=== PATIENT | male | born 1955 | race Caucasian/White ===

== ENCOUNTER 2016-09-01 10:02 | Emergency (ER) | payer OTHER ==
[2016-09-01 09:21] LABS: BASOPHILS 0.6 %; BASOPHILS ABSOLUTE 0.05 10/3/uL (0.0-0.16); EOSINOPHILS 1.5 %; EOSINOPHILS ABSOLUTE 0.13 10/3/uL (0.0-0.53); ER CBC TAT 0 Hrs 03 Mins; HEMATOCRIT 41.1 % (40.0-51.0); HEMOGLOBIN 14.1 g/dL (13.6-17.8); IMMATURE GRANULOCYTES 0.2 %; IMMATURE GRANULOCYTES ABSOLUTE 0.02 10/3/uL (0.0-0.11); LYMPHOCYTES 18.2 %; LYMPHOCYTES ABSOLUTE 1.63 10/3/uL (0.67-4.30); MANUAL DIFF NO %; MEAN CORPUS HGB CONC 34.3 g/dL (32.0-36.0); MEAN CORPUSCULAR HEMOGLOB 31.2 pg (26.0-34.0); MEAN CORPUSCULAR VOLUME 90.9 fL (80-100); MEAN PLATELET VOLUME 8.9 fL (9.2-13.0); MONOCYTES 6.5 %; MONOCYTES ABSOLUTE 0.58 10/3/uL (0.21-1.20); NEUTROPHILS ABSOLUTE 6.55 10/3/uL (2.02-8.40); PLATELET COUNT 359 10/3/uL (150-400); RBC DISTRIBUTION WIDTH 14.8 % (12.0-16.0); RED CELL COUNT 4.52 10/6/uL (4.7-6.1)
[2016-09-01 09:39] LABS: PARTIAL THROMBO TIME 32.6 SEC (22.5-37.2); PROTIME (NOT ORD) 13.1 SEC (12.0-14.5)
[2016-09-01 09:44] LABS: A/G RATIO 0.9 (0.7-1.9); ALBUMIN 3.9 G/DL (3.5-5.0); ALKALINE PHOSPHATASE 128 U/L (45-117); BUN (BLOOD UREA NITROGEN) 16 MG/DL (6-23); CHLORIDE, SERUM 107 MMOL/L (96-112); CO2 (CARBON DIOXIDE) 25 MMOL/L (24-34); CREATININE 0.86 MG/DL (0.70-1.30); GFR AFRICAN AMERICAN 108 ML/MIN (>=60); GFR NON AFRICAN AMERICAN 94 ML/MIN (>=60); GLOBULIN 4.3 G/DL (2.5-4.1); GLUCOSE, SERUM 100 MG/DL (60-99); POTASSIUM, SERUM 3.9 MMOL/L (3.5-5.3); SGOT(AST) 11 U/L (5-40); SGPT(ALT) 13 U/L (5-65); SODIUM, SERUM 139 MMOL/L (135-148); TOTAL BILIRUBIN 0.3 MG/DL (0-1.2); TOTAL PROTEIN 8.2 G/DL (6.0-8.5); TROPONIN I <0.02 NG/ML (<0.05)
[~2016-09-01 10:02] MED LIST: ADVIL PO; AVODART PO; CELEXA20 PO; COMP10B PO; LORT7 PO; MIRALAXPKT PO; MSCONT15 PO; MSCONTIN PO; MULTIVITAMI1 PO; NEUR300 PO; NORCO1 TA2 PO; NORV5 PO; PCET PO; PROTONIX PO; STOOL SOFTENER OTC PO; ZOFRAN8 PO
[2017-01-18] MEDS ORDERED: DEX4 PO (13:45)
[2017-01-18] MEDS ORDERED: ACETYL L-CARNITINE PO (13:47)
[2017-01-18] MEDS ORDERED: TYLENOL PM PO (13:47)
[2017-01-18] MEDS ORDERED: CENTRUM PO (13:47)
== END 2016-09-01 12:13 | disposition home or self-care (01) ==
LOC: ER 10:02
PROVIDERS: Emergency Medicine
DX: C71.9 Malignant neoplasm of brain, unspecified (principal); C34.90 Malignant neoplasm of unspecified part of unspecified bronchus or lung; F17.200 Nicotine dependence, unspecified, uncomplicated; J44.9 Chronic obstructive pulmonary disease, unspecified; I10 Essential (primary) hypertension; Z91.013 Allergy to seafood; Z79.899 Other long term (current) drug therapy; D49.89 Neoplasm of unspecified behavior of other specified sites
CPT/HCPCS: 70450; 70553; 71010; 80053; 84484; 85025; 85610; 85730; 93005; 96374; 99285; A9577

== ENCOUNTER 2016-11-16 20:30 | Inpatient (IN) | payer OTHER ==
--- NOTE | ~2016-11-16 | IDS ---
Interim Discharge Summary [facility] [address] [place]. [address] NAME: CELSO BURKS : 55 STATUS : ADM IN PAT#: [id number] AGE: 61 ADM/REG DATE : 11/16/16 MR#: [id number] REPORT SERV DATE: 11/23/16 DICTATED BY: DATE: REPORT STATUS : Draft TRANSCRIBED BY: MODL DATE: 11/23/16 ADMISSION DATE: 11/16/2016 DISCHARGE DATE: INTERIM DISCHARGE DIAGNOSES: 1. 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 2. Vasogenic edema. 3. Severe headaches. 4. Recurrent falls. 5. Leukocytosis. 6. Hyperglycemia. CONSULTING PHYSICIANS: Include: 1. Thomas Romero MD, with [facility]. 2. Alfonzo Herr MD, with Radiation Oncology. IMAGING: Includes MRI of the brain with and without contrast. This demonstrated a solitary metastatic lesion measured in 09/2016, 3.1 x 2.0 cm; and on 11/17/2016, it measured 2.7 x 1.9 cm. There was also noted peritumoral edema, which has increased in size since 09/2016 from 7.1 x 4.7 cm to 10.7 x 5.7 cm. The increasing mass effect is associated with a 6 to 7 mm shift, right to left, of the ventricular system. For full H and P, please refer to Dr. Mike Calderon's dictation on 11/16/2016. Please also see Dr. Alfonzo Herr's consultation dictation on 11/17/2016. HOSPITAL COURSE: The patient was admitted with weakness and multiple falls at home. After obtaining the MRI noted above, the patient was started on IV dexamethasone and has remained on the steroid throughout the hospital stay. According to Dr. 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 He is currently on dexamethasone 4 mg IV q.6 hours. His symptoms have drastically improved. He came in with some left-sided weakness with left-sided facial drooping as well as slurred speech. This has almost resolved. He has been working with Physical Therapy and Occupational Therapy, and he will need inpatient rehab with [facility], we are just waiting on insurance approval. CONSTANTINO/MODL Ronnie Siddiqui NP / [id number] CC: Pérez Cortes MD Interim Discharge Summary [address] [place]. [address] NAME: VITALIYCELSOOtilia ANDINO : 55 STATUS : ADM IN PAT#: [id number] AGE: 61 ADM/REG DATE : 11/16/16 MR#: [id number] REPORT SERV DATE: 11/23/16 DICTATED BY: DATE: REPORT STATUS : Draft TRANSCRIBED BY: PAWANL DATE: 11/23/16 Jovani Lyn M.D.
--- NOTE | ~2016-11-16 | HP ---
History And Physical [place] [id number] [facility] [place]. [address] NAME: CELSO BURKS : 55 STATUS : ADM IN PAT#: [id number] AGE: 61 ADM/REG DATE : 11/16/16 MR#: [id number] REPORT SERV DATE: 11/17/16 DICTATED BY: DANIEL HOGUE DATE: 11/16/16 REPORT STATUS : Draft TRANSCRIBED BY: MODL DATE: 11/16/16 DATE OF ADMISSION: 11/16/2016 POINT OF ENTRY: [facility] Emergency Department PRIMARY ONCOLOGIST: Dr. Thomas Romero. CHIEF COMPLAINT: Weakness and falls. HISTORY OF PRESENT ILLNESS: Mr. Burks is a 61-year-old gentleman with a history of metastatic lung cancer with known metastasis to the brain who presents to the emergency department today with report of a one to two week history of worsening left-sided weakness with associated falls. The patient states that he was recently weaned off steroids for known metastatic lesion to the brain with associated vasogenic edema about a week to week and a half ago. States he received a single dose of radiation therapy to the brain as well about two to three weeks ago. Since his weaning from steroids, he has noted progressive worsening weakness of the left arm, greater than left leg with associated difficulties walking with multiple mechanical falls at home and now difficulty even getting himself up off the ground. He had a mechanical fall today where he was unable to get himself up off the ground and required assistance of a very muscular neighbor prompting presentation to the emergency department. He also reports worsening headaches as well as some intermittent dysarthria but denies any dysphagia, aspiration, vision changes. Initial evaluation in the emergency department notable for CT scan of the brain that shows a right posterior frontal lobe lesion that is slightly reduced in size compared to previous imaging, however, it does show significant interval increase to vasogenic edema surrounding the mass extending into the deep white matter regions of the right frontal, parietal, as well as temporal lobe with increasing mass effect of the overlying sulci and right lateral ventricle with increasing midline shift of now [address] Romero of Oncology was consulted and he recommended starting Decadron IV therapy, did not feel the patient was a surgical candidate, and therefore is not a candidate for transfer for Neurosurgery evaluation at [place]. REVIEW OF SYSTEMS: Comprehensive review of systems otherwise negative unless listed in history of present illness. PREVIOUS MEDICAL HISTORY: 1. Non-small cell lung cancer with known metastasis to the brain. 2. Hypertension. 3. COPD. SURGICAL HISTORY: Right thoracotomy with right upper lobe lung resection as well as chest wall resection including the ribs 3, 4, and 5. History And Physical [place] [address] [place]. [address] NAME: CELSO BURKS : 55 STATUS : ADM IN PAT#: [id number] AGE: 61 ADM/REG DATE : 11/16/16 MR#: [id number] REPORT SERV DATE: 11/17/16 DICTATED BY: DANIEL HOGUE DATE: 11/16/16 REPORT STATUS : Draft TRANSCRIBED BY: SHANTI DATE: 11/16/16 ALLERGIES: NO KNOWN DRUG ALLERGIES. HOME MEDICATIONS: Pending at the time of dictation. SOCIAL HISTORY: He is a former smoker, quit about two years ago with lung cancer diagnosis. Denies alcohol or illicits. FAMILY HISTORY: Mother with history of colon cancer. Father with history of lung cancer. Siblings with history of coronary artery disease. LABS AND IMAGIN. White count 10.8, hemoglobin is 14.1, hematocrit 42.0, and platelet count 370. INR 1.0. 2. CMP is pending at the time of dictation. 3. CT scan of the brain similar to slightly decreased appearing size of a poorly circumscribed mass, right posterior frontal lobe, estimated 2.1 x 2.2 cm in diameter compared to 2.2 x 2.6 cm diameter on the MRI brain images, although there is significant interval increasing vasogenic edema surrounding this mass extending into the deep white matter regions of the right frontal parietal and temporal lobe with increasing mass effect on the overlying sulci and right lateral ventricle with increasing shift in midline structures to the left of midline, now measures 6 mm, preserved basal cisterns. No evidence of significant downward brain herniation, mild deep white matter chronic microvascular ischemic changes, left periventricular deep white matter. No other acute intracranial pathology. PHYSICAL EXAMINATION: VITAL SIGNS: Temperature is 98.1 degrees Fahrenheit, pulse is 89, respirations 18, saturating 98% on room air, and blood pressure 160/91. GENERAL: The patient is awake, alert, in no acute distress. Resting comfortably in bed. He is a well-developed, well-nourished, elderly chronically ill-appearing elderly male. HEENT: Atraumatic and normocephalic. Moist mucous membranes. Pupils are equal, round, reactive to light and accommodation. Extraocular eye movements intact. No scleral icterus. NECK: No jugular venous distention. No carotid bruits. CARDIAC: Regular rate and rhythm. No murmurs or gallops. Normal S1, S2. LUNGS: Clear to auscultation bilaterally. No wheezes, rhonchi, or crackles. Does have some decreased breath sounds in the bases and prolonged respiratory phase. ABDOMEN: Soft, nontender, nondistended. Good bowel sounds. No rebound, guarding, or rigidity. EXTREMITIES: Warm and perfused. No cyanosis, clubbing, or edema. SKIN: Warm and dry. PSYCH: Affect appropriate. NEURO: Alert and oriented x3. His speech is somewhat dysarthric, although cranial nerves 2 through 12 are grossly intact except for some right-sided facial droop. He has about 3/5 strength in the left upper extremity with even worse business records manager strength and about 4/5 strength in distal left lower extremity. Gait was not assessed. History And Physical [address] [address] NAME: CELSO BURKS : 55 STATUS : ADM IN [facility]#: [id number] AGE: 61 ADM/REG DATE : 11/16/16 MR#: [id number] REPORT SERV DATE: 11/17/16 DICTATED BY: DANIEL HOGUE DATE: 11/16/16 REPORT STATUS : Draft TRANSCRIBED BY: SHANTI DATE: 11/16/16 ASSESSMENT: Mr. Burks is a 61-year-old gentleman with history of metastatic lung cancer with known metastasis to the brain who presents with worsening headaches, left-sided weakness with resulting recurrent mechanical falls and is now found to have evidence of worsening vasogenic edema and mass effect surrounding his known brain metastasis. PROBLEM LIST: 1. Brain metastasis with worsening vasogenic edema, mass effect, and midline shift. 2. Left-sided weakness. 3. Severe headaches. 4. Recurrent mechanical falls. 5. Metastatic lung cancer to the brain. PLAN: 1. Brain metastasis with worsening vasogenic edema, mass effect, and midline shift. We will place the patient on Decadron 10 mg IV q.6 hours. We will consult the patient's oncologist and radiation oncologist to see patient in the morning. Dr. Romero did not think patient was a surgical candidate, therefore, transfer to [facility] was not attempted. Per discussion with the patient, he also wants to avoid surgery at all costs and is amenable to staying at [facility] at this time. 2. DVT prophylaxis. Lovenox subcu. CODE STATUS: The patient wished to be full code. JCB/MODL Daniel Hogue MD / [id number] CC: Sarah Vanegas M.D.
--- NOTE | ~2016-11-16 | CONSULT ---
Radiation Oncology Consult [place] [id number] [facility] [place]. 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 PREVIOUS TREATMENT: Stereotactic radiosurgery to 18 Gy to the right mid centrum semiovale. DATE OF COMPLETION: 09/25/2016. INTERVAL HISTORY: This is a delightful 61-year-old male, who presented with a large apical chest mass with invasion of the ribs. Biopsy confirmed poorly differentiated squamous cell carcinoma. He underwent preoperative chemoradiation for a non-small cell lung cancer. This was followed by surgical resection. During the interval followup, the patient developed stroke-like symptoms, and an MRI of the brain in August confirmed a 2.4 cm enhancing mass in the mid centrum ovale. The patient underwent stereotactic radiosurgery which was completed in September. Since that time, he has had persistent headaches that have recurred with each steroid taper. The patient has recently completed his latest steroid taper and presented with new stroke-like symptoms. A CT of the brain in the emergency room noted a poorly differentiated squamous cell mass at the site of prior radiation. This measured approximately 2 cm. There is severe local edema with a 6 mm midline shift. There are no other intracranial abnormalities. He was initiated on Decadron and admitted. At today's visit, the patient reports his symptoms have been slowly improving since steroids have begun. His speech is somewhat slurred and his facial droop has decreased. He continues to have facial droop as well as left-sided weakness. This is similar to that of his at the time of initial diagnosis of his brain metastasis. He denies any other symptoms including bone pain or weight loss. His daughter reports he has a very difficult time at home, and his is limiting her ability to help move the patient. PAST MEDICAL HISTORY: 1. 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 2. Brain metastasis. 3. Tobacco abuse. 4. Hypertension. REVIEW OF SYSTEMS: A complete and extended review of system was performed. Pertinent positives are noted in the HPI. MEDICATIONS: Medication reconciliation has been reviewed and discussed. Please refer to the EMR. ALLERGIES: NO KNOWN DRUG ALLERGIES. Radiation Oncology Consult [place] [address] [place]. [address] NAME: CELSO BUKRS : 55 STATUS : ADM IN PAT#: [id number] AGE: 61 ADM/REG DATE : 11/16/16 MR#: [id number] REPORT SERV DATE: 11/18/16 DICTATED BY: ALFONSO HERR DATE: 11/18/16 REPORT STATUS : Draft TRANSCRIBED BY: SHANTI DATE: 11/18/16 SOCIAL HISTORY: The patient is . Lives in [place], [place]. He quit smoking at the time of his diagnosis. He denies alcohol. He denies illicit drug use. He drinks socially. PHYSICAL EXAMINATION: ECOG performance status of 2. Pain score is 0/10. VITAL SIGNS: Weight 170, height 5 feet 10 inches, and afebrile. GENERAL: Well-developed, well-nourished male, very pleasant and comfortable, lying in the hospital bed. HEENT: Left-sided facial droop. Normocephalic. Extraocular movements are intact. LYMPHATICS: No supraclavicular or cervical lymphadenopathy. RESPIRATORY: Nonlabored breathing. Symmetric expansion. GI: Soft, nontender, and nondistended. EXTREMITIES: No edema. Normal range of motion. NEUROLOGIC: 3/5 left-sided weakness in his upper and lower extremity. Facial droop is present, minimal slurred speech. PSYCH: Verbalized understanding of our discussion. Demonstrates appropriate insight. IMAGING: I personally reviewed the CT of the brain which shows midline shift and severe edema surrounding the site of prior radiation. ASSESSMENT AND PLAN: 61-year-old male with a solitary brain metastasis status post radiation in September. He has continued to have edema with each steroid taper. He has recently completed his latest course of steroids and has a recurrence of his edema. 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 I agree with steroids q.6 hours until his symptoms improve. He will need a long outpatient taper as he has demonstrated recurrent edema with each reduction in his steroid dose. I will discuss the case with Dr. Romero regarding an additional interventions. I appreciate the opportunity to take part in this patient's care. JTW/MODL Alfonso Herr MD / [id number] CC: MD Errol Silver M.D.
--- NOTE | ~2016-11-16 | DS ---
Discharge Summary [facility] [address] [place]. [address] NAME: CELSO BURKS : 55 STATUS : ADM IN PAT#: [id number] AGE: 61 ADM/REG DATE : 11/16/16 MR#: [id number] REPORT SERV DATE: 11/26/16 DICTATED BY: JOVANI FABIAN DATE: 11/26/16 REPORT STATUS : Draft TRANSCRIBED BY: MODL DATE: 11/26/16 ADMISSION DATE: 11/16/2016 DISCHARGE DATE: 11/26/2016 DISCHARGE DIAGNOSIS: 1. Non-small cell lung cancer with known brain metastasis. 2. Vasogenic edema. 3. Severe headaches. 4. Recent falls. 5. Leukocytosis. CONSULTATIONS: 1. Oncology, Dr. Thomas Romero. 2. Radiation Oncology, Dr. Alfonzo Herr. IMAGIN. CT brain 11/16/2016, impression: Similar to slightly decreased appearance in size of a poorly circumscribed mass in the right posterior frontal lobe, estimated at 2.1 x 2.2 cm in diameter, compared to 2.2 x 2.6 cm in diameter on post-contrast MRI of the brain images although significant interval increasing vasogenic edema surrounding this mass extending into the deep white matter regions of the right frontal, parietal, and temporal lobe; increasing mass effect on the overlying sulci and right lateral ventricle with increasing shift of midline structures to the left, midline now measured at 6 mm midline shift. 2. MRI of the brain, 11/17/2016, impression: The size of the enhancing portion is described as decreasing suggesting a favorable response. The increased amount of edema and FLAIR sequence is worsening; however, there may be an increased progression changes present. There is a background of some scattered glottic changes in the right and left centrum semiovale, nonspecific, probably microvascular angiopathy. HOSPITAL STAY: Please refer to history and physical dictated by Dr. Calderon on 11/16/2016 as well as consultation and interim notes. This patient is a 61-year-old gentleman, who was admitted for increased weakness and multiple falls at home. Imaging was obtained which is noted above. The patient was initially started on IV dexamethasone, remained on steroids throughout his hospital stay and was transitioned to oral, which he has tolerated well. The patient was evaluated by Dr. Herr as noted above. Please refer to his dictation. Increased symptoms likely due to radiation necrosis and not progression of disease, therefore patient will be continued on extended course of steroids. The patient has had complaints of left-sided weakness and left sided facial drooping with slurred speech. This is resolving. The patient was evaluated by Physical Therapy and Occupational Therapy during his hospital stay and was recommended for inpatient rehab. Per patient's choice, he will be transitioned to [facility] for further rehabilitation. web production manager has been working with the patient for a smooth transition. DISCHARGE MEDICATIONS: Discharge Summary [address] [address] NAME: CELSO BURKS : 55 STATUS : ADM IN PAT#: [id number] AGE: 61 ADM/REG DATE : 11/16/16 MR#: [id number] REPORT SERV DATE: 11/26/16 DICTATED BY: JOVANI FABIAN DATE: 11/26/16 REPORT STATUS : Draft TRANSCRIBED BY: SHANTI DATE: 11/26/16 1. Norvasc 5 mg one p.o. daily. 2. Decadron 4 mg one p.o. four times daily. 3. Hydrocodone 7.5/325 mg one tablet every six hours p.r.n. for pain. 4. NovoLog sliding scale. 5. Remeron 50 mg one p.o. at bedtime. 6. Nortriptyline 50 mg one p.o. at bedtime. 7. Protonix 40 mg one p.o. every morning. The patient is being discharged to rehab in hemodynamically stable condition. We will follow up with Oncology and Radiation Oncology outpatient. This discharge took less than 30 minutes. DICTATED BY: Jovani Fabian NP [facility]/SHANTI Jovani Fabian NP / [id number] CC: Jovani Lyn M.D.
[2016-11-16 21:48] LABS: BASOPHILS 0.3 %; BASOPHILS ABSOLUTE 0.03 10/3/uL (0.0-0.16); EOSINOPHILS 0.8 %; EOSINOPHILS ABSOLUTE 0.09 10/3/uL (0.0-0.53); HEMOGLOBIN 14.1 g/dL (13.6-17.8); IMMATURE GRANULOCYTES 0.4 %; IMMATURE GRANULOCYTES ABSOLUTE 0.04 10/3/uL (0.0-0.11); LYMPHOCYTES ABSOLUTE 2.92 10/3/uL (0.67-4.30); MEAN CORPUS HGB CONC 33.6 g/dL (32.0-36.0); MEAN CORPUSCULAR HEMOGLOB 30.9 pg (26.0-34.0); MEAN CORPUSCULAR VOLUME 92.1 fL (80-100); MEAN PLATELET VOLUME 8.8 fL (9.2-13.0); MONOCYTES 10.7 %; MONOCYTES ABSOLUTE 1.16 10/3/uL (0.21-1.20); NEUTROPHILS 60.8 %; NEUTROPHILS ABSOLUTE 6.56 10/3/uL (2.02-8.40); PLATELET COUNT 378 10/3/uL (150-400); RBC DISTRIBUTION WIDTH 14.9 % (12.0-16.0); RED CELL COUNT 4.56 10/6/uL (4.7-6.1); WHITE BLOOD CELLS 10.8 10/3/uL (4.5-10.5)
[2016-11-16 21:52] LABS: MANUAL DIFF NO %
[2016-11-16 22:12] LABS: PROTIME (NOT ORD) 12.8 SEC (12.0-14.5)
[2016-11-16] MEDS ORDERED: REM15 PO (23:00)
[2016-11-16] MEDS ORDERED: NOR50 PO (23:00)
[2016-11-16] MEDS ORDERED: NORCO1 TA2 PO (23:00)
[2016-11-16] MEDS ORDERED: PROTONIX PO (23:00)
[2016-11-16] MEDS ORDERED: NORV10 PO (23:02)
[2016-11-16 23:42] LABS: A/G RATIO 0.8 (0.7-1.9); ALBUMIN 3.2 G/DL (3.5-5.0); BUN (BLOOD UREA NITROGEN) 18 MG/DL (6-23); CALCIUM, SERUM 8.9 MG/DL (8.5-10.4); CHLORIDE, SERUM 108 MMOL/L (96-112); CO2 (CARBON DIOXIDE) 26 MMOL/L (24-34); CREATININE 0.63 MG/DL (0.70-1.30); GFR AFRICAN AMERICAN 123 ML/MIN (>=60); GFR NON AFRICAN AMERICAN 106 ML/MIN (>=60); GLUCOSE, SERUM 86 MG/DL (60-99); POTASSIUM, SERUM 3.6 MMOL/L (3.5-5.3); SGOT(AST) 15 U/L (5-40); SGPT(ALT) 16 U/L (5-65); SODIUM, SERUM 142 MMOL/L (135-148); TOTAL BILIRUBIN 0.4 MG/DL (0-1.2); TOTAL PROTEIN 7.2 G/DL (6.0-8.5)
[2016-11-16 23:44] LABS: ALKALINE PHOSPHATASE 114 U/L (45-117)
[2016-11-18 05:17] LABS: BASOPHILS 0.1 %; BASOPHILS ABSOLUTE 0.01 10/3/uL (0.0-0.16); EOSINOPHILS 0 %; HEMATOCRIT 39.9 % (40.0-51.0); HEMOGLOBIN 14.1 g/dL (13.6-17.8); IMMATURE GRANULOCYTES 0.4 %; IMMATURE GRANULOCYTES ABSOLUTE 0.07 10/3/uL (0.0-0.11); LYMPHOCYTES 9.6 %; LYMPHOCYTES ABSOLUTE 1.81 10/3/uL (0.67-4.30); MEAN CORPUSCULAR HEMOGLOB 32.3 pg (26.0-34.0); MEAN CORPUSCULAR VOLUME 91.5 fL (80-100); MONOCYTES ABSOLUTE 0.75 10/3/uL (0.21-1.20); NEUTROPHILS 85.9 %; NEUTROPHILS ABSOLUTE 16.16 10/3/uL (2.02-8.40); PLATELET COUNT 386 10/3/uL (150-400); RBC DISTRIBUTION WIDTH 14.7 % (12.0-16.0); RED CELL COUNT 4.36 10/6/uL (4.7-6.1)
[2016-11-18 05:18] LABS: MANUAL DIFF NO %; MEAN CORPUS HGB CONC 35.3 g/dL (32.0-36.0); WHITE BLOOD CELLS 18.8 10/3/uL (4.5-10.5)
[2016-11-18 05:31] LABS: BUN (BLOOD UREA NITROGEN) 20 MG/DL (6-23); CALCIUM, SERUM 9.2 MG/DL (8.5-10.4); CHLORIDE, SERUM 107 MMOL/L (96-112); CO2 (CARBON DIOXIDE) 25 MMOL/L (24-34); CREATININE 0.72 MG/DL (0.70-1.30); GFR AFRICAN AMERICAN 117 ML/MIN (>=60); GFR NON AFRICAN AMERICAN 101 ML/MIN (>=60); SODIUM, SERUM 139 MMOL/L (135-148)
[2016-11-18 05:33] LABS: GLUCOSE, SERUM 144 MG/DL (60-99); POTASSIUM, SERUM 4.4 MMOL/L (3.5-5.3)
[2016-11-19 07:03] LABS: BASOPHILS 0 %; BASOPHILS ABSOLUTE 0.01 10/3/uL (0.0-0.16); EOSINOPHILS 0 %; HEMATOCRIT 39.6 % (40.0-51.0); HEMOGLOBIN 13.4 g/dL (13.6-17.8); IMMATURE GRANULOCYTES 0.5 %; IMMATURE GRANULOCYTES ABSOLUTE 0.12 10/3/uL (0.0-0.11); LYMPHOCYTES 6.8 %; LYMPHOCYTES ABSOLUTE 1.49 10/3/uL (0.67-4.30); MEAN CORPUS HGB CONC 33.8 g/dL (32.0-36.0); MEAN CORPUSCULAR HEMOGLOB 31.5 pg (26.0-34.0); MEAN PLATELET VOLUME 9.3 fL (9.2-13.0); MONOCYTES ABSOLUTE 0.89 10/3/uL (0.21-1.20); NEUTROPHILS 88.7 %; NEUTROPHILS ABSOLUTE 19.48 10/3/uL (2.02-8.40); PLATELET COUNT 374 10/3/uL (150-400); RBC DISTRIBUTION WIDTH 15.2 % (12.0-16.0); RED CELL COUNT 4.26 10/6/uL (4.7-6.1)
[2016-11-19 07:04] LABS: MANUAL DIFF NO %
[2016-11-20 06:58] LABS: BASOPHILS 0.1 %; BASOPHILS ABSOLUTE 0.01 10/3/uL (0.0-0.16); EOSINOPHILS 0 %; HEMATOCRIT 37.9 % (40.0-51.0); HEMOGLOBIN 12.8 g/dL (13.6-17.8); IMMATURE GRANULOCYTES 0.7 %; IMMATURE GRANULOCYTES ABSOLUTE 0.11 10/3/uL (0.0-0.11); LYMPHOCYTES 8.1 %; LYMPHOCYTES ABSOLUTE 1.32 10/3/uL (0.67-4.30); MEAN CORPUS HGB CONC 33.8 g/dL (32.0-36.0); MEAN CORPUSCULAR HEMOGLOB 31.1 pg (26.0-34.0); MEAN CORPUSCULAR VOLUME 92.2 fL (80-100); MEAN PLATELET VOLUME 9.2 fL (9.2-13.0); MONOCYTES 3.9 %; MONOCYTES ABSOLUTE 0.64 10/3/uL (0.21-1.20); NEUTROPHILS 87.2 %; NEUTROPHILS ABSOLUTE 14.16 10/3/uL (2.02-8.40); PLATELET COUNT 354 10/3/uL (150-400); RED CELL COUNT 4.11 10/6/uL (4.7-6.1); WHITE BLOOD CELLS 16.2 10/3/uL (4.5-10.5)
[2016-11-20 06:59] LABS: MANUAL DIFF NO %
[2016-11-21 05:36] LABS: BASOPHILS 0.1 %; BASOPHILS ABSOLUTE 0.01 10/3/uL (0.0-0.16); EOSINOPHILS 0 %; HEMATOCRIT 39.8 % (40.0-51.0); HEMOGLOBIN 13.5 g/dL (13.6-17.8); IMMATURE GRANULOCYTES 1.2 %; IMMATURE GRANULOCYTES ABSOLUTE 0.21 10/3/uL (0.0-0.11); LYMPHOCYTES ABSOLUTE 1.44 10/3/uL (0.67-4.30); MEAN CORPUS HGB CONC 33.9 g/dL (32.0-36.0); MEAN CORPUSCULAR HEMOGLOB 31.2 pg (26.0-34.0); MEAN CORPUSCULAR VOLUME 91.9 fL (80-100); MEAN PLATELET VOLUME 9.1 fL (9.2-13.0); MONOCYTES 4.4 %; NEUTROPHILS 86.3 %; NEUTROPHILS ABSOLUTE 15.64 10/3/uL (2.02-8.40); PLATELET COUNT 347 10/3/uL (150-400); RBC DISTRIBUTION WIDTH 14.7 % (12.0-16.0); RED CELL COUNT 4.33 10/6/uL (4.7-6.1); WHITE BLOOD CELLS 18.1 10/3/uL (4.5-10.5)
[2016-11-21 05:38] LABS: MANUAL DIFF NO %
[2016-11-22 05:20] LABS: HEMATOCRIT 39.1 % (40.0-51.0); HEMOGLOBIN 13.1 g/dL (13.6-17.8); MEAN CORPUS HGB CONC 33.5 g/dL (32.0-36.0); MEAN CORPUSCULAR HEMOGLOB 30.9 pg (26.0-34.0); MEAN CORPUSCULAR VOLUME 92.2 fL (80-100); MEAN PLATELET VOLUME 9.1 fL (9.2-13.0); PLATELET COUNT 345 10/3/uL (150-400); RBC DISTRIBUTION WIDTH 14.7 % (12.0-16.0); RED CELL COUNT 4.24 10/6/uL (4.7-6.1); WHITE BLOOD CELLS 15.9 10/3/uL (4.5-10.5)
[2016-11-22 05:22] LABS: MANUAL DIFF YES %
[2016-11-22 05:55] LABS: BAND NEUTROPHILS 1 %; IMMATURE GRANS ABSOLUTE (CALC) 0.16 10/3/uL (0.0-0.11); LYMPHOCYTES 7 %; LYMPHOCYTES ABSOLUTE (CALC) 1.11 10/3/uL (0.67-4.30); METAMYELOCYTES 1 %; MONOCYTES 3 %; MONOCYTES ABSOLUTE (CALC) 0.48 10/3/uL (0.21-1.20); NEUTROPHILS ABSOLUTE (CALC) 14.15 10/3/uL (2.02-8.40); PLATELET ESTIMATE ADQ (ADEQUATE); RBC MORPHOLOGY NORM (NORMAL); SEGMENTED NEUTROPHIL (0) 88 %; TOTAL NUCLEATED CELLS 100
[2017-01-18] MEDS ORDERED: DEX4 PO (13:45)
[2017-01-18] MEDS ORDERED: CENTRUM PO (13:47)
[2017-01-18] MEDS ORDERED: TYLENOL PM PO (13:47)
[2017-01-18] MEDS ORDERED: ACETYL L-CARNITINE PO (13:47)
== END 2016-11-26 13:05 | DRG 54 ==
LOC: ER 20:30 → 4EA 23:09
PROVIDERS: Emergency Medicine; Internal Medicine; Nurse Practitioner Acute Care
DX: C79.31 Secondary malignant neoplasm of brain (principal); G93.6 Cerebral edema; C34.90 Malignant neoplasm of unspecified part of unspecified bronchus or lung; T38.0X5A Adverse effect of glucocorticoids and synthetic analogues, initial encounter; R73.9 Hyperglycemia, unspecified
CPT/HCPCS: 70450; 70553; 80048; 80053; 82962; 85025; 85610; 85730; 94640; 96374; 97110-GO; 97110-GP; 97112-GO; 97116-GP; 97162-GP; 97165-GO; 97535-GO; 99285; A9270-GY; A9577; J1170